=== PATIENT | female | born 1995 | race Caucasian/White ===

== ENCOUNTER 2018-10-08 09:30 | Inpatient (IN) | payer MEDICAID ==
[2018-10-08 10:59] LABS: ADD MAN DIFF? NO
[2018-10-08 11:01] LABS: BASOPHILS % 0.2 % (0.0-2.0); EOSINOPHILS % 0.3 % (0.0-7.0); HEMATOCRIT 37.8 % (37.0-47.0); HEMOGLOBIN 11.4 g/dl (12.0-16.0); LYMPHOCYTES # 0.7 10^3/ul (0.8-2.9); LYMPHOCYTES % 4.4 % (15.0-51.0); MEAN CORPUSCULAR HEMOGLOBIN 21.8 pg (29.0-33.0); MEAN CORPUSCULAR HGB CONC 30.2 g/dl (32.0-37.0); MEAN CORPUSCULAR VOLUME 72.3 fl (82.0-101.0); MEAN PLATELET VOLUME 9.2 fl (7.4-10.4); MONOCYTE # 0.8 10^3/ul (0.3-0.9); MONOCYTES % 5.5 % (0.0-11.0); NEUTROPHIL # 13.1 10^3/ul (1.6-7.5); NEUTROPHILS % 89.3 % (39.0-77.0); PLATELET COUNT 302 10^3/UL (140-415); RED BLOOD COUNT 5.23 10^6/ul (4.20-5.40); RED CELL DISTRIBUTION WIDTH 19.1 % (11.5-14.5)
[2018-10-08 11:01] LABS: WHITE BLOOD COUNT 14.7 10^3/ul (4.8-10.8)
[2018-10-08] MEDS: ONDANSETRON 4 MG INJ IV (11:03)
[2018-10-08] MEDS: morphine 2 MG INJ IV ×2 (11:03→22:48)
[2018-10-08] MEDS: SOD CHLORIDE 0.9% 1,000 ML IV (11:03)
[2018-10-08 11:07] LABS: ADD UMIC YES; UR ASCORBIC ACID NEGATIVE (NEGATIVE); UR BACTERIA FEW /HPF (NONE SEEN); UR BILIRUBIN (Dip) NEGATIVE (NEGATIVE); UR BLOOD (Dip) 3+ mg/dL (NEGATIVE); UR CLARITY SLIGHTLY CLOUDY (CLEAR); UR COLOR YELLOW (YELLOW); UR GLUCOSE (Dip) NEGATIVE (NEGATIVE); UR KETONES (Dip) TRACE mg/dL (NEGATIVE); UR LEUKOCYTE ESTERASE (Dip) NEGATIVE Leu/ul (NEGATIVE); UR MUCUS FEW /HPF (NONE SEEN); UR NITRITE (Dip) NEGATIVE (NEGATIVE); UR RBC 73 /HPF (0-5); UR SPECIFIC GRAVITY (Dip) 1.021 (1.003-1.030); UR SQUAMOUS EPITHELIAL CELL FEW /HPF (FEW); UR TOTAL PROTEIN (Dip) NEGATIVE (NEGATIVE); UR UROBILINOGEN (Dip) NEGATIVE (NEGATIVE); UR WBC 2 /HPF (0-5)
[2018-10-08 11:26] LABS: ALANINE AMINOTRANSFERASE 22 IU/L (13-69); ALBUMIN 4.8 g/dl (3.3-4.9); ALBUMIN/GLOBULIN RATIO 1.33; ALKALINE PHOSPHATASE 94 IU/L (42-121); ANION GAP 8 (5-13); ASPARTATE AMINO TRANSFERASE 25 IU/L (15-46); BILIRUBIN,INDIRECT 0.5 mg/dl (0-1.1); BILIRUBIN,TOTAL 0.5 mg/dl (0.2-1.3); BLOOD UREA NITROGEN 9 mg/dl (7-20); CALCIUM 9.7 mg/dl (8.4-10.2); CARBON DIOXIDE 28 mmol/L (21-31); CHLORIDE 103 mmol/L (97-110); Estimated GFR > 60 mL/min (>60); GLUCOSE 102 mg/dl (70-220); LIPASE 63 U/L (23-300); POTASSIUM 3.8 mmol/L (3.5-5.1); SODIUM 139 mmol/L (135-144); TOTAL PROTEIN 8.4 g/dl (6.1-8.1)
[2018-10-08] MEDS: SOD CHLORIDE 0.9% 100 ML (12:22)
[2018-10-08] MEDS: IOHEXOL 300MG/ML 150 ML BTL (12:23)
[2018-10-08] MEDS: PIPER-TAZO 3.375 GM IV (PMX) 100 ML IVPB ×3 (13:22→23:58)
[2018-10-08] MEDS ORDERED: ONDANSETRON 4 MG INJ IV (16:30)
[2018-10-08] MEDS ORDERED: HYDROCODONE/APAP (5/325) TAB PO (16:30)
[2018-10-08] MEDS ORDERED: ZOLPIDEM 5 MG TAB PO (16:30)
[2018-10-08] MEDS ORDERED: ACETAMINOPHEN 325 MG TAB PO (16:30)
[2018-10-08] MEDS ORDERED: NACL 0.9% 3 ML SYG IV (16:30)
[2018-10-08] MEDS ORDERED: PIPER-TAZO 3.375 GM IV (PMX) 100 ML IVPB (18:00)
[2018-10-08] MEDS: 1/2 NS + KCL 20 MEQ 1,000 ML IV (22:01)
[2018-10-09] MEDS: 1/2 NS + KCL 20 MEQ 1,000 ML IV ×3 (01:25→20:24)
[2018-10-09 05:34] LABS: ADD MAN DIFF? NO
[2018-10-09 05:38] LABS: WHITE BLOOD COUNT 6.8 10^3/ul (4.8-10.8)
[2018-10-09 05:38] LABS: BASOPHILS % 0.4 % (0.0-2.0); EOSINOPHILS # 0.1 10^3/ul (0.0-0.5); EOSINOPHILS % 1.6 % (0.0-7.0); HEMATOCRIT 32.8 % (37.0-47.0); HEMOGLOBIN 9.7 g/dl (12.0-16.0); LYMPHOCYTES # 2.1 10^3/ul (0.8-2.9); LYMPHOCYTES % 31.4 % (15.0-51.0); MEAN CORPUSCULAR HEMOGLOBIN 21.8 pg (29.0-33.0); MEAN CORPUSCULAR HGB CONC 29.6 g/dl (32.0-37.0); MEAN CORPUSCULAR VOLUME 73.7 fl (82.0-101.0); MEAN PLATELET VOLUME 9.6 fl (7.4-10.4); MONOCYTE # 0.6 10^3/ul (0.3-0.9); MONOCYTES % 8.6 % (0.0-11.0); NEUTROPHIL # 3.9 10^3/ul (1.6-7.5); NEUTROPHILS % 57.7 % (39.0-77.0); PLATELET COUNT 249 10^3/UL (140-415); RED BLOOD COUNT 4.45 10^6/ul (4.20-5.40); RED CELL DISTRIBUTION WIDTH 19.5 % (11.5-14.5)
[2018-10-09 05:50] LABS: HEMOGLOBIN A1C 5.3 % (0-5.9)
[2018-10-09] MEDS: PIPER-TAZO 3.375 GM IV (PMX) 100 ML IVPB ×4 (06:00→23:52)
[2018-10-09 06:01] LABS: ANION GAP 6 (5-13); BLOOD UREA NITROGEN 7 mg/dl (7-20); CALCIUM 8.9 mg/dl (8.4-10.2); CARBON DIOXIDE 28 mmol/L (21-31); CHLORIDE 105 mmol/L (97-110); CREATININE 0.57 mg/dl (0.44-1.00); Estimated GFR > 60 mL/min (>60); GLUCOSE 77 mg/dl (70-220); PHOSPHORUS 4.7 mg/dl (2.5-4.9); SODIUM 139 mmol/L (135-144)
[2018-10-10 05:07] LABS: ADD MAN DIFF? NO
[2018-10-10 05:22] LABS: WHITE BLOOD COUNT 4.7 10^3/ul (4.8-10.8)
[2018-10-10 05:22] LABS: BASOPHILS % 0.6 % (0.0-2.0); EOSINOPHILS # 0.1 10^3/ul (0.0-0.5); EOSINOPHILS % 2.4 % (0.0-7.0); HEMATOCRIT 34.4 % (37.0-47.0); HEMOGLOBIN 10.3 g/dl (12.0-16.0); LYMPHOCYTES # 1.6 10^3/ul (0.8-2.9); LYMPHOCYTES % 34.3 % (15.0-51.0); MEAN CORPUSCULAR HEMOGLOBIN 21.7 pg (29.0-33.0); MEAN CORPUSCULAR HGB CONC 29.9 g/dl (32.0-37.0); MEAN CORPUSCULAR VOLUME 72.6 fl (82.0-101.0); MEAN PLATELET VOLUME 9.9 fl (7.4-10.4); MONOCYTE # 0.5 10^3/ul (0.3-0.9); MONOCYTES % 10.1 % (0.0-11.0); NEUTROPHIL # 2.4 10^3/ul (1.6-7.5); NEUTROPHILS % 52.4 % (39.0-77.0); PLATELET COUNT 287 10^3/UL (140-415); RED BLOOD COUNT 4.74 10^6/ul (4.20-5.40); RED CELL DISTRIBUTION WIDTH 19.2 % (11.5-14.5)
[2018-10-10] MEDS: PIPER-TAZO 3.375 GM IV (PMX) 100 ML IVPB ×2 (06:09→11:57)
[2018-10-10] MEDS: 1/2 NS + KCL 20 MEQ 1,000 ML IV (06:09)
== END 2018-10-10 16:15 | disposition home or self-care (01) | DRG 872 ==
LOC: FTE 09:30 → 2NE 13:24
DX: A41.9 Sepsis, unspecified organism (principal); K35.80 Unspecified acute appendicitis; F10.10 Alcohol abuse, uncomplicated; D50.9 Iron deficiency anemia, unspecified; F15.90 Other stimulant use, unspecified, uncomplicated
CPT/HCPCS: 36415; 74177; 76705; 76830; 76856; 80048; 80053; 81001; 81025; 83036; 83690; 83735; 84100; 85025; 96361; 96374; 96375; 99285-25